=== PATIENT | female | born 1950 | race Two or more races ===

== ENCOUNTER → 2017-03-14 | Day surgery (SDC) | payer OTHER ==
[~2017-03-14] MED LIST: ADVAIR 250-501 EAC1 INH; CELEBREX400 MG PO; CRESTOR PO; TYL325 PO
--- NOTE | ~2017-03-14 | OR ---
Unit #: [id number] #: [id number] Patient: GUDELIA FERRIS [id number] [address] [address] [id number] O MR#: [id number] NAME: GUDELIA FERRIS ROOM: Date of Procedure: 03/14/2017 Admission Date: 03/14/2017 Surgeon: Ivan Pierson M.D. : 1950 Attending Physician: Ivan Pierson M.D. Primary Care Physician: Cam Aguila M.D. OPERATIVE REPORT PREOPERATIVE DIAGNOSES 1. Lumbar disk herniation. 2. Radiculopathy. POSTOPERATIVE DIAGNOSES 1. Lumbar disk herniation. 2. Radiculopathy. PROCEDURE PERFORMED Lumbar epidural steroid injection with intravenous sedation and fluoroscopic guidance for needle localization. INDICATIONS FOR PROCEDURE The patient is a 66-year-old female with return of left lower extremity pain due to known L2-3 left-sided disk herniation. She also has a right-sided disk herniation at the L4-L5 level and significant stenosis at L3-4. In the past with different provider, the patient had been treated with epidural steroids and done very well. She had resurgence of these symptoms. Based on history of pathology, symptomatology, and treatment options, plan is to repeat an epidural steroid injection today. DESCRIPTION OF PROCEDURE The patient was placed in a seated position. Standard monitors were applied. 2 mg of Versed were given for sedation and anxiolysis, which were adequate. Vital signs remained stable. Sterile prep and drape then of the lumbar area was performed. The skin then at the L3-L4 level was localized with 1% lidocaine. An 18-gauge Fatigue Sciencetead needle was then advanced via loss of resistance technique and fluoroscopic guidance in toward the epidural space. After confirming proper positioning with fluoroscopy and radiographic contrast, a dose of 80 mg of Depo-Medrol and 4 mL of 0.125% bupivacaine were deposited. The patient tolerated the procedure otherwise well and was discharged to the recovery room in stable condition. Dictated by... Ivan Pierson M.D. LHP/modl TD: 03/15/2017 06:06 JOB #: [id number] Unit #: [id number] #: [id number] Patient: GUDELIA FERRIS OPERATIVE REPORT Page 1 of 1 X Ivan Pierson MD X PROCEDURE OPERATIVE NOTE
== END | disposition home or self-care (01) ==
LOC: CCSC 11:07
PROVIDERS: Pain Medicine Pain Medicine
PROC: 3E0S3BZ Introduction of Anesthetic Agent into Epidural Space, Percutaneous Approach (ICD-10-PCS; 2017-03-14)
PROC: 3E0S33Z Introduction of Anti-inflammatory into Epidural Space, Percutaneous Approach (ICD-10-PCS; principal; 2017-03-14 11:45)
DX: M51.16 Intervertebral disc disorders with radiculopathy, lumbar region (principal); M48.06 Spinal stenosis, lumbar region
CPT/HCPCS: J1040; J2250

== ENCOUNTER → 2017-04-04 | Day surgery (SDC) | payer OTHER ==
--- NOTE | ~2017-04-04 | OR ---
Unit #: [id number] #: [id number] Patient: GUDELIA FERRIS [id number] [address] [address] [id number] O MR#: [id number] NAME: GUDELIA FERRIS ROOM: Date of Procedure: 04/04/2017 Admission Date: 04/04/2017 Surgeon: Ivan Pierson M.D. : 1950 Attending Physician: Ivan Pierson M.D. Primary Care Physician: Cam Aguila M.D. PROCEDURE OPERATIVE NOTE PREOPERATIVE DIAGNOSES Lumbar disk herniation and radiculopathy. POSTOPERATIVE DIAGNOSES Lumbar disk herniation and radiculopathy. PROCEDURE PERFORMED Lumbar epidural steroid injection with intravenous sedation and fluoroscopic guidance for needle localization. HISTORY This is a 66-year-old female. Primary issue is left lower extremity radicular pain. Workup demonstrates a left-sided L2-3 disk extrusion contacting left L3 nerve root with severe stenosis at L3-4 and right sided disk herniation at L4-5. Patient failed conservative treatment. Initial epidural steroid injection done 3 1/2 weeks ago resulted in significant improved of her left lower extremity pain. Based on this very good response, we will proceed with a repeat epidural steroid injection today. PROCEDURE Patient was placed in a seated position. Standard monitors were applied. Versed, 2 mg, was given for sedation and anxiolysis, which were adequate. Vital signs remained stable. Sterile prep and drape then of the lumbar area was performed. The skin then at the L3-4 level was localized with 1% lidocaine. An 18 gauge Hustead needle was then advanced via loss of resistance technique and fluoroscopic guidance in toward the epidural space. After confirming proper positioning with fluoroscopy and radiographic contrast, 80 mg of Depo-Medrol and 4 mL of 0.125% bupivacaine were deposited. The patient tolerated the procedure otherwise well and was discharged to the recovery room in stable condition. Dictated by... Tisha Melo/tenzin TD: 04/04/2017 12:22 JOB #: [id number] Unit #: [id number] #: [id number] Patient: GUDELIA FERRIS PROCEDURE OPERATIVE NOTE Page 1 of 1 X Ivan Pierson MD X PROCEDURE OPERATIVE NOTE
== END | disposition home or self-care (01) ==
LOC: CCSC 11:05
DX: M51.16 Intervertebral disc disorders with radiculopathy, lumbar region (principal); M48.06 Spinal stenosis, lumbar region
CPT/HCPCS: J1040; J2250

== ENCOUNTER → 2017-04-25 | Day surgery (SDC) | payer OTHER ==
--- NOTE | ~2017-04-25 | OR ---
Unit #: [id number] #: [id number] Patient: GUDELIA FERRIS [id number] [address] [address] [id number] O MR#: [id number] NAME: GUDELIA FERRIS ROOM: Date of Procedure: 04/25/2017 Admission Date: 04/25/2017 Surgeon: Ivan Pierson M.D. : 1950 Attending Physician: Ivan Pierson M.D. Primary Care Physician: Cam Aguila M.D. OPERATIVE REPORT PREOPERATIVE DIAGNOSES Herniated nucleus pulposus, radiculopathy, back pain. POSTOPERATIVE DIAGNOSES Herniated nucleus pulposus, radiculopathy, back pain. PROCEDURE PERFORMED Lumbar epidural steroid injection with intravenous sedation and fluoroscopic guidance for needle localization. INDICATIONS FOR PROCEDURE The patient is a 66-year-old female, who presented with primary complaint of left lower extremity pain felt to be due to the L2-L3 left-sided disk extrusion contacting the left L3 nerve root. At L3-L4, there was severe spinal stenosis. She has a right-sided disk herniation at the L4-L5 level. After failing conservative treatment, the plan is for trial of epidural steroids, two of which have been done to this point. Each injection done about approximately 3 weeks apart. She has gotten about 80% settling of her symptom complex. Based on a very good response of pathology, and symptomatology, we are going to proceed with a final epidural steroid injection today. DESCRIPTION OF PROCEDURE The patient was placed in a seated position. Standard monitors were applied. 1 mg of Versed was given was given for sedation and anxiolysis, which was adequate. Vital signs remained stable. Sterile prep and drape then of the lumbar area was performed. The skin then at the L4-L5 level was localized with 1% lidocaine. An 18-gauge TabbedOuttead needle was then advanced via loss of resistance technique and fluoroscopic guidance in toward the epidural space. The patient did not complain of any pain or paresthesia during needle advancement. After confirming proper positioning with fluoroscopy and radiographic contrast, 80 mg of Depo-Medrol and 4 mL of 0.125% bupivacaine were deposited. The patient tolerated the procedure otherwise well and was discharged to the recovery room in stable condition. Dictated by... Ivan Pierson M.D. [facility]/modl Unit #: [id number] #: [id number] Patient: GUDELIA FERRIS TD: 04/25/2017 23:11 JOB #: [id number] OPERATIVE REPORT Page 1 of 1 X Ivan Pierson MD X PROCEDURE OPERATIVE NOTE
== END | disposition home or self-care (01) ==
LOC: CCSC 10:43
DX: M51.16 Intervertebral disc disorders with radiculopathy, lumbar region (principal); M48.06 Spinal stenosis, lumbar region
CPT/HCPCS: J1040; J2250